=== PATIENT | male | born 1980 | race African-American/Black ===

== ENCOUNTER 2017-12-12 21:04 | Inpatient (IN) | payer OTHER ==
[2017-12-12 21:58] LABS: ADD MAN DIFF? NO
[2017-12-12 22:00] LABS: BASOPHILS % 0.5 % (0.0-2.0); EOSINOPHILS # 0.1 10^3/ul (0.0-0.5); EOSINOPHILS % 2.2 % (0.0-7.0); HEMATOCRIT 33.4 % (42.0-52.0); HEMOGLOBIN 10.8 g/dl (14.0-18.0); LYMPHOCYTES # 0.9 10^3/ul (0.8-2.9); LYMPHOCYTES % 15.3 % (15.0-51.0); MEAN CORPUSCULAR HEMOGLOBIN 26.1 pg (29.0-33.0); MEAN CORPUSCULAR HGB CONC 32.3 g/dl (32.0-37.0); MEAN CORPUSCULAR VOLUME 80.7 fl (82.0-101.0); MEAN PLATELET VOLUME 9.7 fl (7.4-10.4); MONOCYTE # 0.4 10^3/ul (0.3-0.9); MONOCYTES % 6.4 % (0.0-11.0); NEUTROPHIL # 4.4 10^3/ul (1.6-7.5); NEUTROPHILS % 75.4 % (39.0-77.0); PLATELET COUNT 318 10^3/UL (140-415); RED BLOOD COUNT 4.14 10^6/ul (4.70-6.10); RED CELL DISTRIBUTION WIDTH 14.2 % (11.5-14.5)
[2017-12-12 22:00] LABS: WHITE BLOOD COUNT 5.8 10^3/ul (4.8-10.8)
[2017-12-12] MEDS ORDERED: LABETALOL HCL 20MG INJ IV (22:00)
[2017-12-12] MEDS: LABETALOL HCL 20MG INJ IV (22:24)
[2017-12-12 22:26] LABS: ANION GAP 16 (8-16); BLOOD UREA NITROGEN 53 mg/dl (7-20); CALCIUM 8.1 mg/dl (8.4-10.2); CARBON DIOXIDE 20 mmol/L (21-31); CHLORIDE 111 mmol/L (97-110); CREATININE 5.04 mg/dl (0.61-1.24); GLUCOSE 142 mg/dl (70-220); POTASSIUM 4.9 mmol/L (3.5-5.1); SODIUM 142 mmol/L (135-144)
[2017-12-12 22:38] LABS: B-TYPE NATRIURETIC PEPTIDE 26000 PG/ML (0-125); TROPONIN-I 0.027 ng/ml (0.00-0.12)
[2017-12-13] MEDS ORDERED: LABETALOL HCL 20MG INJ IV (00:30)
[2017-12-13] MEDS: LABETALOL HCL 20MG INJ IV ×2 (00:50→18:10)
[2017-12-13] MEDS: FUROSEMIDE 40 MG INJ IV (00:51)
[2017-12-13] MEDS: SOD CHLORIDE 0.9% 1,000 ML IV (00:51)
[2017-12-13 01:23] LABS: ETHANOL < 10.0 mg/dl; SALICYLATE < 1.0 mg/dl (5.0-30.0)
[2017-12-13 01:23] LABS: ACETAMINOPHEN < 10.0 ug/ml (10.0-30.0)
[2017-12-13 01:48] LABS: FREE THYROXINE INDEX (Calc) 2.45 ug/ml (0.65-3.89); T3 UPTAKE 43.7 % (23.5-40.5); T4 (THYROXINE) 5.6 ug/dl (5.5-11.0)
[2017-12-13] MEDS: hydrALAzine 20 MG INJ IV ×2 (02:09→16:27)
[2017-12-13] MEDS ORDERED: ONDANSETRON 4 MG INJ IV ×2 (04:30→08:00)
[2017-12-13] MEDS ORDERED: ACETAMINOPHEN 325 MG TAB PO ×2 (04:30→08:00)
[2017-12-13] MEDS ORDERED: IPRATROPIUM (NEB) 0.5 MG/2.5 ML AMP NEB (08:00)
[2017-12-13] MEDS ORDERED: morphine 2 MG INJ IV (08:00)
[2017-12-13] MEDS ORDERED: NACL 0.9% 3 ML SYG IV (08:00)
[2017-12-13] MEDS ORDERED: NITROGLYCERIN (SL) 0.4 MG TAB SL (08:00)
[2017-12-13] MEDS: HEPARIN 5,000 UNIT/0.5 ML VIAL SC ×2 (08:17→20:38)
[2017-12-13 08:45] LABS: AMPHETAMINE/METHAMPHETAMINE Negative (NEGATIVE); BARBITURATES Negative (NEGATIVE); BENZODIAZEPINES Negative (NEGATIVE); CANNABINOIDS Negative (NEGATIVE); COCAINE Negative (NEGATIVE); OPIATES Negative (NEGATIVE)
[2017-12-13 12:24] LABS: HAAIG REFLEX REFLEX FILED
[2017-12-13 14:55] LABS: PHOSPHORUS 5.7 mg/dl (2.5-4.9)
[2017-12-13 15:27] LABS: HEPATITIS B SURFACE ANTIGEN NEGATIVE (NEGATIVE)
[2017-12-13 15:45] LABS: HEPATITIS B CORE ANTIBODY NEGATIVE (NEGATIVE); HEPATITIS C VIRAL ANTIBODY NEGATIVE (NEGATIVE)
[2017-12-13] MEDS: AMLODIPINE 10 MG TAB PO (20:36)
[2017-12-13] MEDS: NIFEdipine (XL) 60 MG TAB PO (23:44)
[2017-12-14] MEDS: LABETALOL HCL 20MG INJ IV (02:15)
[2017-12-14] MEDS: hydrALAzine 20 MG INJ IV ×2 (03:54→23:26)
[2017-12-14] MEDS: FUROSEMIDE 40 MG INJ IV ×2 (05:55→17:15)
[2017-12-14] MEDS: NIFEdipine (XL) 60 MG TAB PO (08:33)
[2017-12-14] MEDS: HEPARIN 5,000 UNIT/0.5 ML VIAL SC ×2 (08:34→20:32)
[2017-12-14 08:58] LABS: ADD MAN DIFF? NO
[2017-12-14 09:04] LABS: WHITE BLOOD COUNT 4.8 10^3/ul (4.8-10.8)
[2017-12-14 09:04] LABS: BASOPHILS % 0.8 % (0.0-2.0); EOSINOPHILS # 0.1 10^3/ul (0.0-0.5); EOSINOPHILS % 2.9 % (0.0-7.0); HEMATOCRIT 29.9 % (42.0-52.0); LYMPHOCYTES # 0.9 10^3/ul (0.8-2.9); LYMPHOCYTES % 18.7 % (15.0-51.0); MEAN CORPUSCULAR HEMOGLOBIN 26.6 pg (29.0-33.0); MEAN CORPUSCULAR HGB CONC 33.4 g/dl (32.0-37.0); MEAN CORPUSCULAR VOLUME 79.5 fl (82.0-101.0); MEAN PLATELET VOLUME 10.1 fl (7.4-10.4); MONOCYTE # 0.5 10^3/ul (0.3-0.9); MONOCYTES % 9.4 % (0.0-11.0); NEUTROPHIL # 3.3 10^3/ul (1.6-7.5); NEUTROPHILS % 68.2 % (39.0-77.0); PLATELET COUNT 307 10^3/UL (140-415); RED BLOOD COUNT 3.76 10^6/ul (4.70-6.10); RED CELL DISTRIBUTION WIDTH 14.5 % (11.5-14.5)
[2017-12-14 09:23] LABS: URIC ACID 7.8 mg/dl (3.1-7.9)
[2017-12-14 09:31] LABS: CREATINE KINASE 122 IU/L (23-200)
[2017-12-14 09:43] LABS: ALANINE AMINOTRANSFERASE 28 IU/L (13-69); ALBUMIN 2.7 g/dl (3.3-4.9); ALBUMIN/GLOBULIN RATIO 0.79; ALKALINE PHOSPHATASE 108 IU/L (42-121); ANION GAP 16 (8-16); ASPARTATE AMINO TRANSFERASE 16 IU/L (15-46); BLOOD UREA NITROGEN 49 mg/dl (7-20); CALCIUM 8.5 mg/dl (8.4-10.2); CARBON DIOXIDE 19 mmol/L (21-31); CHLORIDE 114 mmol/L (97-110); CHOL/HDL RATIO 3.7 RATIO; CHOLESTEROL 163 mg/dl (100-200); CREATININE 4.79 mg/dl (0.61-1.24); GLUCOSE 122 mg/dl (70-220); HDL CHOLESTEROL 43 mg/dl (28-63); LDL CHOLESTEROL,CALCULATED 94 mg/dl; MAGNESIUM 1.5 mg/dl (1.7-2.5); POTASSIUM 4.8 mmol/L (3.5-5.1); SODIUM 144 mmol/L (135-144); TOTAL PROTEIN 6.1 g/dl (6.1-8.1); TRIGLYCERIDES 130 mg/dl (0-149)
[2017-12-14 09:55] LABS: HEMOGLOBIN A1C 5.9 % (0-5.9)
[2017-12-14] MEDS ORDERED: CARISOPRODOL 350 MG TAB PO (19:30)
[2017-12-14] MEDS: METOPROLOL 50 MG TAB PO (20:21)
[2017-12-14] MEDS: DOCUSATE SODIUM 100 MG CAP PO ×2 (20:22→21:00)
[2017-12-14] MEDS: TIMOLOL 0.5% 5 ML OPH BOTH EYES (20:22)
[2017-12-14] MEDS: BRIMONIDINE 0.15% 5 ML OPH BOTH EYES (21:05)
[2017-12-15] MEDS: hydrALAzine 20 MG INJ IV ×2 (04:02→23:42)
[2017-12-15] MEDS: FUROSEMIDE 40 MG INJ IV ×2 (05:29→17:37)
[2017-12-15] MEDS: BRIMONIDINE 0.15% 5 ML OPH BOTH EYES ×3 (05:30→20:56)
[2017-12-15 08:54] LABS: ADD MAN DIFF? NO
[2017-12-15] MEDS ORDERED: ACETAZOLAMIDE 250 MG TAB PO (09:00)
[2017-12-15] MEDS: DOCUSATE SODIUM 100 MG CAP PO ×2 (09:00→20:50)
[2017-12-15 09:06] LABS: BASOPHILS % 0.8 % (0.0-2.0); EOSINOPHILS # 0.2 10^3/ul (0.0-0.5); EOSINOPHILS % 3.8 % (0.0-7.0); HEMATOCRIT 30.9 % (42.0-52.0); HEMOGLOBIN 10.5 g/dl (14.0-18.0); LYMPHOCYTES # 1.1 10^3/ul (0.8-2.9); LYMPHOCYTES % 21.4 % (15.0-51.0); MEAN CORPUSCULAR HEMOGLOBIN 26.6 pg (29.0-33.0); MEAN CORPUSCULAR VOLUME 78.2 fl (82.0-101.0); MEAN PLATELET VOLUME 10.4 fl (7.4-10.4); MONOCYTE # 0.5 10^3/ul (0.3-0.9); MONOCYTES % 10.2 % (0.0-11.0); NEUTROPHIL # 3.2 10^3/ul (1.6-7.5); NEUTROPHILS % 63.6 % (39.0-77.0); PLATELET COUNT 322 10^3/UL (140-415); RED BLOOD COUNT 3.95 10^6/ul (4.70-6.10); RED CELL DISTRIBUTION WIDTH 14.4 % (11.5-14.5)
[2017-12-15] MEDS: TIMOLOL 0.5% 5 ML OPH BOTH EYES ×2 (09:17→20:48)
[2017-12-15] MEDS: MINOXIDIL 2.5 MG TAB PO (09:18)
[2017-12-15] MEDS: METOPROLOL 50 MG TAB PO ×2 (09:18→20:50)
[2017-12-15] MEDS: ISOSORBIDE MONONITRATE(SR)30 MG TAB PO (09:19)
[2017-12-15] MEDS: NIFEdipine (XL) 60 MG TAB PO (09:19)
[2017-12-15] MEDS: FINASTERIDE 5 MG TAB PO (09:19)
[2017-12-15] MEDS: HEPARIN 5,000 UNIT/0.5 ML VIAL SC ×2 (09:20→20:51)
[2017-12-15 09:35] LABS: BLOOD UREA NITROGEN 48 mg/dl (7-20); CALCIUM 8.4 mg/dl (8.4-10.2); CARBON DIOXIDE 18 mmol/L (21-31); CREATININE 4.74 mg/dl (0.61-1.24); GLUCOSE 104 mg/dl (70-220); MAGNESIUM 1.5 mg/dl (1.7-2.5); PHOSPHORUS 4.8 mg/dl (2.5-4.9)
[2017-12-15 09:43] LABS: ANION GAP 15 (8-16); CHLORIDE 113 mmol/L (97-110); POTASSIUM 4.7 mmol/L (3.5-5.1); SODIUM 141 mmol/L (135-144)
[2017-12-15 10:24] LABS: CREATININE,URINE RANDOM 29.25 mg/dl (20-370); PROTEIN/CREAT RATIO 6.01 RATIO
[2017-12-15 10:25] LABS: ADD UMIC YES; UR ASCORBIC ACID NEGATIVE (NEGATIVE); UR BACTERIA FEW /HPF (NONE SEEN); UR BILIRUBIN (Dip) NEGATIVE (NEGATIVE); UR BLOOD (Dip) 1+ mg/dL (NEGATIVE); UR CLARITY CLOUDY (CLEAR); UR COLOR YELLOW (YELLOW); UR GLUCOSE (Dip) NEGATIVE (NEGATIVE); UR KETONES (Dip) NEGATIVE (NEGATIVE); UR LEUKOCYTE ESTERASE (Dip) 3+ Leu/ul (NEGATIVE); UR NITRITE (Dip) NEGATIVE (NEGATIVE); UR NONSQUAMOUS EPITHELIAL CELL 1 /HPF (NONE SEEN); UR RBC 6 /HPF (0-5); UR SPECIFIC GRAVITY (Dip) 1.008 (1.003-1.030); UR TOTAL PROTEIN (Dip) 2+ mg/dl (NEGATIVE); UR UROBILINOGEN (Dip) NEGATIVE (NEGATIVE); UR WBC > 182 /HPF (0-5)
[2017-12-15 10:27] LABS: SODIUM,URINE RANDOM 134 mmol/L (30-90)
[2017-12-15] MEDS: MAGNESIUM SULFATE 2 GM/50 ML 50 ML IVPB (12:48)
[2017-12-15] MEDS: CITRIC ACID/SODIUM CITRATE 15 ML CUP PO (20:49)
[2017-12-16] MEDS: FUROSEMIDE 40 MG INJ IV ×2 (05:32→17:32)
[2017-12-16] MEDS: BRIMONIDINE 0.15% 5 ML OPH BOTH EYES ×3 (05:33→21:39)
[2017-12-16 05:36] LABS: ANION GAP 16 (8-16); BLOOD UREA NITROGEN 47 mg/dl (7-20); CALCIUM 8.6 mg/dl (8.4-10.2); CARBON DIOXIDE 20 mmol/L (21-31); CHLORIDE 111 mmol/L (97-110); GLUCOSE 99 mg/dl (70-220); MAGNESIUM 1.7 mg/dl (1.7-2.5); POTASSIUM 4.6 mmol/L (3.5-5.1); SODIUM 142 mmol/L (135-144)
[2017-12-16] MEDS ORDERED: GLUCOSE GEL 15 GRAM TUBE BUCCAL (06:15)
[2017-12-16] MEDS ORDERED: DEXTROSE 50% 50 ML SYRINGE IV ×2 (06:15)
[2017-12-16] MEDS ORDERED: GLUCOSE GEL 15 GRAM TUBE PO ×2 (06:15)
[2017-12-16] MEDS ORDERED: GLUCAGON 1 MG INJ IM (06:15)
[2017-12-16] MEDS: INSULIN ASPART [NOVOLOG] 3 ML PEN SC ×4 (07:50→21:00)
[2017-12-16] MEDS: hydrALAzine 20 MG INJ IV ×2 (08:20→13:45)
[2017-12-16] MEDS: CITRIC ACID/SODIUM CITRATE 15 ML CUP PO ×3 (08:20→20:42)
[2017-12-16] MEDS: TIMOLOL 0.5% 5 ML OPH BOTH EYES ×2 (08:20→20:47)
[2017-12-16] MEDS: NIFEdipine (XL) 90 MG TAB PO (08:21)
[2017-12-16] MEDS: METOPROLOL 50 MG TAB PO (08:21)
[2017-12-16] MEDS: DOCUSATE SODIUM 100 MG CAP PO ×2 (08:22→20:44)
[2017-12-16] MEDS: ISOSORBIDE MONONITRATE(SR)30 MG TAB PO (08:22)
[2017-12-16] MEDS: FINASTERIDE 5 MG TAB PO (08:22)
[2017-12-16] MEDS: MINOXIDIL 2.5 MG TAB PO (08:23)
[2017-12-16] MEDS: HEPARIN 5,000 UNIT/0.5 ML VIAL SC ×2 (08:28→20:50)
[2017-12-16] MEDS: METOPROLOL 25 MG TAB PO (20:44)
[2017-12-17] MEDS: ACCUCHECK AT 2AM (Patients on SS coverage) XX (02:00)
[2017-12-17] MEDS: FUROSEMIDE 40 MG INJ IV (05:12)
[2017-12-17] MEDS: BRIMONIDINE 0.15% 5 ML OPH BOTH EYES (05:13)
[2017-12-17] MEDS: TIMOLOL 0.5% 5 ML OPH BOTH EYES (08:40)
[2017-12-17] MEDS: DOCUSATE SODIUM 100 MG CAP PO (08:40)
[2017-12-17] MEDS: METOPROLOL 25 MG TAB PO (08:41)
[2017-12-17] MEDS: FINASTERIDE 5 MG TAB PO (08:41)
[2017-12-17] MEDS: MINOXIDIL 2.5 MG TAB PO (08:41)
[2017-12-17] MEDS: NIFEdipine (XL) 90 MG TAB PO (08:41)
[2017-12-17] MEDS: ISOSORBIDE MONONITRATE(SR)30 MG TAB PO (08:41)
[2017-12-17] MEDS: CITRIC ACID/SODIUM CITRATE 15 ML CUP PO ×2 (08:42→13:00)
[2017-12-17] MEDS: HEPARIN 5,000 UNIT/0.5 ML VIAL SC (08:51)
[2017-12-17] MEDS: INSULIN ASPART [NOVOLOG] 3 ML PEN SC ×2 (08:52→12:47)
[2017-12-17] MEDS ORDERED: FUROSEMIDE 40 MG TAB PO (18:00)
== END 2017-12-17 15:22 | disposition home or self-care (01) | DRG 682 ==
LOC: MS1 12-15 23:10 → E/R 21:04 → MS4 12-13 04:09
DX: N17.9 Acute kidney failure, unspecified (principal); I50.33 Acute on chronic diastolic (congestive) heart failure; E10.21 Type 1 diabetes mellitus with diabetic nephropathy; H35.033 Hypertensive retinopathy, bilateral; I16.1 Hypertensive emergency; I13.2 Hypertensive heart and chronic kidney disease with heart failure and with stage 5 chronic kidney disease, or end stage renal disease; E10.22 Type 1 diabetes mellitus with diabetic chronic kidney disease; N18.5 Chronic kidney disease, stage 5; H54.8 Legal blindness, as defined in USA; E78.5 Hyperlipidemia, unspecified; E10.319 Type 1 diabetes mellitus with unspecified diabetic retinopathy without macular edema; I16.0 Hypertensive urgency; Z79.4 Long term (current) use of insulin
CPT/HCPCS: 36415; 71045; 76775; 80048; 80053; 80061; 80306; 80307; 81001; 81003; 82550; 82570; 82962; 83036; 83735; 83880; 83970; 84100; 84300; 84436; 84479; 84484; 84560; 85025; 86704; 86709; 86803; 87081; 87340; 89190; 93005; 93306; 96372; 96374; 96375; 96376; 99291-25